=== PATIENT | male | born 1995 | race Caucasian/White ===

== ENCOUNTER 2016-09-27 21:15 | Emergency (ER) | payer OTHER ==
[2016-09-27] MEDS ORDERED: PROVENTIL 2.5 MG/3 ML NEB IH ONE ×2 (22:07→22:24)
[2016-09-27] MEDS ORDERED: Zithromax 250 MG TABLET PO ONE (22:08)
[2016-09-27] MEDS ORDERED: MOTRIN 600 MG PO ONE (22:08)
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
[2016-09-27] MEDS ORDERED: MOTRIN 600 MG ONE (22:17)
[2016-09-27] MEDS ORDERED: Zithromax 250 MG TABLET ONE (22:17)
[2016-09-27 22:32] VITALS: O2SAT 99
[2016-09-27 22:39] VITALS: BP 128/70; PULSE 76
--- NOTE | 2016-09-28 08:39 | XRAY ---
Indication: Cough, congestion, and chest pain. Comparison: July 24, 2012 PA/lateral chest again demonstrates normal heart and lungs. Bony thorax intact again with old left rib fractures. Stable left upper quadrant abdominal coils. Impression: Stable nonacute chest.
== END 2016-09-27 22:39 | disposition home or self-care (01) ==
LOC: ED 21:15
DX: J20.9 Acute bronchitis, unspecified (principal)
CPT/HCPCS: 71020; 94640; 99283